=== PATIENT | female | born 1930 | race Caucasian/White ===

== ENCOUNTER 2016-12-16 04:43 | Inpatient (IN) | payer MEDICARE, BC ==
[~2016-12-16] VITALS: Ht 165.1 cm; Wt 114.8 kg
[2016-12-16] VITALS (34 sets, daily range): BP systolic 81–125; BP diastolic 36–79
[2016-12-16] MEDS ORDERED: ALBUTEROL FS 2.5 MG/0.5 ML VIAL.NEB ONE (04:59)
[2016-12-16] MEDS ORDERED: IPRATROPIUM NEB FS 0.5 MG/2.5 ML AMPUL.NEB NEB ONE (05:00)
[2016-12-16] MEDS ORDERED: methylPREDNISolone SOD SUCC 125 MG/2ML VIAL IV ONE (05:00)
[2016-12-16] MEDS ORDERED: IPRATROPIUM NEB FS 0.5 MG/2.5 ML AMPUL.NEB ONE (05:00)
[2016-12-16] MEDS ORDERED: ALBUTEROL FS 2.5 MG/0.5 ML VIAL.NEB NEB ONE (05:00)
[2016-12-16] MEDS ORDERED: methylPREDNISolone SOD SUCC 125 MG/2ML VIAL ONE (05:05)
[2016-12-16 05:24] LABS: BASOPHILS # (AUTO) 0.1 /CMM (0.0-0.2); BASOPHILS % (AUTO) 0.4 % (0.0-2.0); DIFF TOTAL % 100 %; EOSINOPHILS # (AUTO) 0.1 /CMM (0.0-0.7); EOSINOPHILS % (AUTO) 0.3 % (0.0-6.0); HEMATOCRIT 47 % (33-45); HEMOGLOBIN 14.9 g/dL (11.5-14.8); LYMPHOCYTES # (AUTO) 5.1 /CMM (0.8-4.8); MEAN CORPUSCULAR HEMOGLOBIN 27 PG (26.0-33.0); MEAN CORPUSCULAR HGB CONC 32 g/dl (31.0-36.0); MEAN CORPUSCULAR VOLUME 84 fL (82-100); MONOCYTES # (AUTO) 1.6 /CMM (0.1-1.30); MONOCYTES % (AUTO) 8.7 % (2.0-12.0); NEUTROPHILS # (AUTO) 11.4 /CMM (1.8-8.9); NEUTROPHILS % (AUTO) 62.6 % (43.0-81.0); PLATELET COUNT (AUTO) 196 /CMM (150-450); RED BLOOD CELL COUNT(AUTO) 5.59 MIL/uL (4.0-5.2); WHITE BLOOD COUNT (AUTO) 18.2 K/uL (4.3-11.0)
[2016-12-16] MEDS ORDERED: ASPIRIN 325 MG TABLET ONE (05:46)
[2016-12-16 05:48] LABS: ANION GAP 11 (5-14); CALCIUM, SERUM 9.3 mg/dL (8.5-10.1); CARBON DIOXIDE 30 mmol/L (21-32); CHLORIDE 101 mmol/L (98-107); CREATININE 1.7 mg/dL (0.6-1.3); GLUCOSE 215 mg/dL (74-106); POTASSIUM 4.3 mmol/L (3.5-5.1); SODIUM SERUM 137 mmol/L (136-145); UREA NITROGEN, BLOOD 31 mg/dL (7-18)
[2016-12-16 05:48] LABS: ABG BASE EXCESS -7.7 mmol/L; ABG HCO3 23.3 mmol/L; ABG PH 7.121 (7.350-7.450); ABG PO2 189.1 mmHg (75.0-100.0); ABG TOTAL HEMOGLOBIN 15.5 G/dL (12.0-16.0); ALLEN TEST Pass; AaDO2 450.9 mmHg; O2Hb 97.8 % (94.0-97.0)
[2016-12-16 05:49] LABS: LACTIC ACID 2.6 mmol/L (0.4-2.0)
[2016-12-16 05:51] LABS: ALANINE AMINOTRANSFERASE 54 U/L (12-78); ALBUMIN 3.9 g/dL (3.4-5.0); ASPARTATE AMINOTRANSFERASE 47 U/L (15-37); BILIRUBIN,DIRECT 0.1 mg/dL (0.0-0.2); BILIRUBIN,TOTAL 0.4 mg/dL (0.2-1.0); INDIRECT BILIRUBIN 0.3 mg/dL (0.0-1.1); TOTAL PROTEIN, SERUM 8.8 g/dL (6.4-8.2)
[2016-12-16] MEDS ORDERED: FUROSEMIDE 40 MG/4 ML VIAL ONE (05:51)
[2016-12-16] MEDS ORDERED: ACETAMINOPHEN 650 MG/SUPP.RECT RC PRN (06:00)
[2016-12-16] MEDS ORDERED: FUROSEMIDE 40 MG/4 ML VIAL IV ONE (06:00)
[2016-12-16 06:09] LABS: KETONES,URINE NEGATIVE (NEGATIVE); LEUKOCYTE ESTERASE ,URINE NEGATIVE (NEGATIVE)
[2016-12-16] MEDS ORDERED: IV SET PRIMARY PUMP SET 1 EA INFUS.SET MC ONE ×3 (06:16→11:39)
[2016-12-16] MEDS ORDERED: NTG 50 MG/D5W250 ML BOTTL 250 ML IV ONE ×2 (06:16→06:30)
[2016-12-16] MEDS ORDERED: LORAZEPAM INJ 2 MG/ML VIAL ONE (06:18)
[2016-12-16 06:19] LABS: PHOSPHORUS 3.9 mg/dL (2.5-4.9)
[2016-12-16 06:21] LABS: *LACTIC ACID REFLEX FLAG YES
[2016-12-16 06:21] LABS: ADD UA MICROSCOPIC YES
[2016-12-16 06:29] LABS: THYROID STIMULATING HORMONE 3.614 uIU/mL (0.358-3.74)
[2016-12-16 06:30] LABS: ADD URINE CULTURE NO; WBC,URINE 0-2 /HPF (0-3)
[2016-12-16] MEDS ORDERED: LORAZEPAM INJ 2 MG/ML VIAL IV ONE (06:30)
[2016-12-16 06:46] LABS: INR 1.52 (0.87-1.13); PROTHROMBIN TIME 16.5 SECS (9.5-12.7)
[2016-12-16] MEDS ORDERED: DEXTROSE 50%-WATER 50 ML DISP.SYRIN IV PRN (07:00)
[2016-12-16 07:10] LABS: ABG BASE EXCESS -5.8 mmol/L; ABG HCO3 22.6 mmol/L; ABG PH 7.223 (7.350-7.450); ABG TOTAL HEMOGLOBIN 14.6 G/dL (12.0-16.0); ALLEN TEST Pass; O2Hb 98.5 % (94.0-97.0)
[2016-12-16] MEDS ORDERED: NTG 50 MG/D5W250 ML BOTTL 250 ML IV PRN (07:30)
[2016-12-16] MEDS ORDERED: HEPARIN SODIUM, PORCINE 5000 UNITS/1 ML VIAL SQ SCH (09:00)
[2016-12-16] MEDS ORDERED: ENOXAPARIN SODIUM 100 MG/ML DISP.SYRIN SQ SCH ×2 (09:00)
[2016-12-16] MEDS: FUROSEMIDE 40 MG/4 ML VIAL IV SCH ×3 (09:01→16:20)
[2016-12-16] MEDS: BLOOD SUGAR DIAGNOSTIC 1 EACH STRIP VI SCH ×4 (09:01→21:05)
[2016-12-16] MEDS: PANTOPRAZOLE 40 MG VIAL IV SCH (09:01)
[2016-12-16] MEDS ORDERED: LEVOFLOXACIN 750 MG /D5W 150ML 750 MG in PREMIX 1 EA IV SCH (10:30)
[2016-12-16] MEDS ORDERED: ALPR0.255 PO (10:48)
[2016-12-16] MEDS ORDERED: FURO20TA4 PO (10:48)
[2016-12-16] MEDS ORDERED: LEVO125T8 PO (10:48)
[2016-12-16] MEDS ORDERED: OLME40TA3 PO (10:48)
[2016-12-16] MEDS ORDERED: WARF2TAB57 PO (10:48)
[2016-12-16] MEDS ORDERED: METO25TA3 PO (10:48)
[2016-12-16] MEDS ORDERED: PRED5TAB PO (10:48)
[2016-12-16] MEDS ORDERED: ESOM40CA52 PO (10:48)
[2016-12-16] MEDS ORDERED: ALLO100T PO (10:48)
[2016-12-16] MEDS ORDERED: IV NS 0.9% 250 ML IV ONE (11:39)
[2016-12-16] MEDS ORDERED: SECONDARY IV SET 1 EA INFUS.SET MC ONE (11:39)
[2016-12-16] MEDS: LEVOFLOXACIN 750 MG /D5W 150ML 750 MG in PREMIX 1 EA IV SCH (12:10)
[2016-12-16 12:14] LABS: ABG BASE EXCESS -2.3 mmol/L; ABG HCO3 23.1 mmol/L; ABG PCO2 41.8 mmHg (35.0-45.0); ABG PO2 175.3 mmHg (75.0-100.0); ABG TOTAL HEMOGLOBIN 13.8 G/dL (12.0-16.0); ALLEN TEST Pass; AaDO2 134.2 mmHg; O2Hb 97.4 % (94.0-97.0)
[2016-12-16] MEDS ORDERED: IPRATROPIUM NEB FS 0.5 MG/2.5 ML AMPUL.NEB NEB PRN (13:00)
[2016-12-16] MEDS ORDERED: ALBUTEROL FS 2.5 MG/3 ML VIAL.NEB NEB PRN (13:00)
[2016-12-16] MEDS: ALBUTEROL FS 2.5 MG/3 ML VIAL.NEB NEB SCH ×3 (15:30→22:54)
[2016-12-16] MEDS: IPRATROPIUM NEB FS 0.5 MG/2.5 ML AMPUL.NEB NEB SCH ×3 (15:30→22:54)
[2016-12-16] MEDS: methylPREDNISolone SOD SUCC 125 MG/2ML VIAL IV SCH (16:19)
[2016-12-16 17:39] LABS: ABG BASE EXCESS 1.5 mmol/L; ABG HCO3 25.9 mmol/L; ABG PH 7.429 (7.350-7.450); ABG PO2 103.7 mmHg (75.0-100.0); ABG TOTAL HEMOGLOBIN 13.8 G/dL (12.0-16.0); ALLEN TEST Pass; AaDO2 48.7 mmHg; O2Hb 95.9 % (94.0-97.0)
[2016-12-16] MEDS: WARFARIN SODIUM 2 MG TABLET PO SCH (18:01)
[2016-12-16] MEDS: INSULIN REGULAR, HUMAN 100 UNIT/ML 3 ML VIAL SQ PRN (21:11)
[2016-12-17] VITALS (32 sets, daily range): BP systolic 89–167; BP diastolic 36–90
[2016-12-17] MEDS ORDERED: IV NS 0.9% 250 ML IV ONE (00:50)
[2016-12-17] MEDS: IPRATROPIUM NEB FS 0.5 MG/2.5 ML AMPUL.NEB NEB SCH ×6 (03:05→23:08)
[2016-12-17] MEDS: ALBUTEROL FS 2.5 MG/3 ML VIAL.NEB NEB SCH ×6 (03:05→23:08)
[2016-12-17 05:24] LABS: BASOPHILS % (AUTO) 0.2 % (0.0-2.0); DIFF TOTAL % 100 %; EOSINOPHILS % (AUTO) 0.2 % (0.0-6.0); HEMATOCRIT 39 % (33-45); HEMOGLOBIN 12.4 g/dL (11.5-14.8); LYMPHOCYTES # (AUTO) 1.6 /CMM (0.8-4.8); LYMPHOCYTES % (AUTO) 16.1 % (20.0-44.0); MEAN CORPUSCULAR HEMOGLOBIN 27 PG (26.0-33.0); MEAN CORPUSCULAR HGB CONC 32 g/dl (31.0-36.0); MEAN CORPUSCULAR VOLUME 82 fL (82-100); MONOCYTES % (AUTO) 9.9 % (2.0-12.0); NEUTROPHILS # (AUTO) 7.2 /CMM (1.8-8.9); NEUTROPHILS % (AUTO) 73.6 % (43.0-81.0); PLATELET COUNT (AUTO) 155 /CMM (150-450); RED BLOOD CELL COUNT(AUTO) 4.69 MIL/uL (4.0-5.2); WHITE BLOOD COUNT (AUTO) 9.8 K/uL (4.3-11.0)
[2016-12-17 05:35] LABS: ALBUMIN 2.9 g/dL (3.4-5.0); BILIRUBIN,TOTAL 0.5 mg/dL (0.2-1.0); CALCIUM, SERUM 8.8 mg/dL (8.5-10.1); CREATININE 1.5 mg/dL (0.6-1.3); PHOSPHORUS 3.5 mg/dL (2.5-4.9); POTASSIUM 3.8 mmol/L (3.5-5.1); TOTAL PROTEIN, SERUM 6.7 g/dL (6.4-8.2)
[2016-12-17 05:40] LABS: TROPONIN I 1.455 ng/mL (0.00-0.056)
[2016-12-17 05:44] LABS: INR 2.02 (0.87-1.13)
[2016-12-17] MEDS: BLOOD SUGAR DIAGNOSTIC 1 EACH STRIP VI SCH ×4 (08:03→21:32)
[2016-12-17] MEDS ORDERED: METOPROLOL SUCCINATE 25 MG TAB.SR.24H PO SCH (09:00)
[2016-12-17] MEDS ORDERED: ASPIRIN 325 MG TABLET PO SCH (09:00)
[2016-12-17] MEDS: LEVOTHYROXINE SODIUM 125 MCG TABLET PO SCH (09:11)
[2016-12-17] MEDS: DILTIAZEM HCL CD 240 MG PO SCH (09:11)
[2016-12-17] MEDS: PANTOPRAZOLE 40 MG VIAL IV SCH (09:12)
[2016-12-17] MEDS: methylPREDNISolone SOD SUCC 125 MG/2ML VIAL IV SCH ×2 (09:12→17:04)
[2016-12-17] MEDS ORDERED: Magnesium 1GM/D5W 100ML PREMIX 100 ML IV SCH (10:27)
[2016-12-17] MEDS ORDERED: SECONDARY IV SET 1 EA INFUS.SET MC ONE (10:35)
[2016-12-17] MEDS: INSULIN REGULAR, HUMAN 100 UNIT/ML 3 ML VIAL SQ PRN ×2 (12:04→17:25)
[2016-12-17] MEDS: FLUTICASONE PROPIONATE 16 GM BOTTLE NS SCH (12:31)
[2016-12-17] MEDS: WARFARIN SODIUM 2 MG TABLET PO SCH (17:05)
[2016-12-17] MEDS: *INSULIN REGULAR(HUMULIN R)HUM 100 UNIT/ML VIAL SQ PRN (22:07)
[2016-12-18] VITALS (22 sets, daily range): BP systolic 84–162; BP diastolic 25–113
[2016-12-18] MEDS: LORAZEPAM INJ 2 MG/ML VIAL IV PRN (01:45)
[2016-12-18] MEDS: IPRATROPIUM NEB FS 0.5 MG/2.5 ML AMPUL.NEB NEB SCH ×5 (03:15→20:13)
[2016-12-18] MEDS: ALBUTEROL FS 2.5 MG/3 ML VIAL.NEB NEB SCH ×5 (03:17→20:13)
[2016-12-18] MEDS ORDERED: IV NS 0.9% 250 ML IV ONE (04:05)
[2016-12-18 05:03] LABS: DIFF TOTAL % 100 %; HEMATOCRIT 42 % (33-45); HEMOGLOBIN 13.1 g/dL (11.5-14.8); LYMPHOCYTES # (AUTO) 0.9 /CMM (0.8-4.8); LYMPHOCYTES % (AUTO) 10.3 % (20.0-44.0); MEAN CORPUSCULAR HEMOGLOBIN 26 PG (26.0-33.0); MEAN CORPUSCULAR HGB CONC 31 g/dl (31.0-36.0); MEAN CORPUSCULAR VOLUME 83 fL (82-100); MONOCYTES # (AUTO) 0.3 /CMM (0.1-1.30); MONOCYTES % (AUTO) 3.7 % (2.0-12.0); NEUTROPHILS # (AUTO) 7.5 /CMM (1.8-8.9); PLATELET COUNT (AUTO) 169 /CMM (150-450); RED BLOOD CELL COUNT(AUTO) 5.12 MIL/uL (4.0-5.2); WHITE BLOOD COUNT (AUTO) 8.8 K/uL (4.3-11.0)
[2016-12-18 05:15] LABS: ALBUMIN 2.9 g/dL (3.4-5.0); BILIRUBIN,TOTAL 0.5 mg/dL (0.2-1.0); CALCIUM, SERUM 9.3 mg/dL (8.5-10.1); CREATININE 1.4 mg/dL (0.6-1.3); PHOSPHORUS 2.7 mg/dL (2.5-4.9); POTASSIUM 3.7 mmol/L (3.5-5.1); TOTAL PROTEIN, SERUM 7.3 g/dL (6.4-8.2)
[2016-12-18 05:23] LABS: TROPONIN I 0.65 ng/mL (0.00-0.056)
[2016-12-18] MEDS: BLOOD SUGAR DIAGNOSTIC 1 EACH STRIP VI SCH ×4 (07:30→21:53)
[2016-12-18] MEDS: INSULIN REGULAR, HUMAN 100 UNIT/ML 3 ML VIAL SQ PRN ×3 (08:43→17:25)
[2016-12-18] MEDS: methylPREDNISolone SOD SUCC 125 MG/2ML VIAL IV SCH (08:43)
[2016-12-18] MEDS: LEVOTHYROXINE SODIUM 125 MCG TABLET PO SCH (08:43)
[2016-12-18] MEDS: FUROSEMIDE 40 MG TABLET PO SCH (08:44)
[2016-12-18] MEDS: PANTOPRAZOLE 40 MG TABLET.DR PO SCH (08:44)
[2016-12-18] MEDS: POTASSIUM CHLORIDE 20 MEQ TAB.PRT.SR PO SCH (08:44)
[2016-12-18] MEDS: ATORVASTATIN 10 MG TABLET PO SCH (08:44)
[2016-12-18] MEDS: DILTIAZEM HCL CD 240 MG PO SCH (08:47)
[2016-12-18] MEDS: FLUTICASONE PROPIONATE 16 GM BOTTLE NS SCH (08:47)
[2016-12-18] MEDS: LEVOFLOXACIN 750 MG /D5W 150ML 750 MG in PREMIX 1 EA IV SCH (12:01)
[2016-12-18] MEDS: GUAIFENESIN LA 600 MG TABLET.SA PO SCH ×2 (12:42→20:10)
[2016-12-18] MEDS: methylPREDNISolone SOD SUCC 40 MG/ML VIAL IV SCH (16:37)
[2016-12-18] MEDS: WARFARIN SODIUM 2 MG TABLET PO SCH (16:38)
[2016-12-18] MEDS: *INSULIN REGULAR(HUMULIN R)HUM 100 UNIT/ML VIAL SQ PRN (21:55)
[2016-12-19] VITALS: BP 119/60
[2016-12-19] MEDS: LORAZEPAM INJ 2 MG/ML VIAL IV PRN (01:12)
[2016-12-19 04:00] VITALS: BP 121/61
[2016-12-19 06:52] LABS: BASOPHILS # (AUTO) 0.1 /CMM (0.0-0.2); BASOPHILS % (AUTO) 0.6 % (0.0-2.0); DIFF TOTAL % 100 %; HEMATOCRIT 41 % (33-45); HEMOGLOBIN 13.1 g/dL (11.5-14.8); LYMPHOCYTES # (AUTO) 0.9 /CMM (0.8-4.8); LYMPHOCYTES % (AUTO) 8.1 % (20.0-44.0); MEAN CORPUSCULAR HEMOGLOBIN 26 PG (26.0-33.0); MEAN CORPUSCULAR HGB CONC 32 g/dl (31.0-36.0); MEAN CORPUSCULAR VOLUME 83 fL (82-100); MONOCYTES # (AUTO) 0.3 /CMM (0.1-1.30); MONOCYTES % (AUTO) 2.9 % (2.0-12.0); NEUTROPHILS # (AUTO) 9.6 /CMM (1.8-8.9); NEUTROPHILS % (AUTO) 88.4 % (43.0-81.0); PLATELET COUNT (AUTO) 187 /CMM (150-450); WHITE BLOOD COUNT (AUTO) 10.9 K/uL (4.3-11.0)
[2016-12-19 06:58] LABS: INR 2.3 (0.87-1.13); PROTHROMBIN TIME 25.1 SECS (9.5-12.7)
[2016-12-19] MEDS: BLOOD SUGAR DIAGNOSTIC 1 EACH STRIP VI SCH ×4 (07:15→21:27)
[2016-12-19] MEDS: ALBUTEROL FS 2.5 MG/3 ML VIAL.NEB NEB SCH ×4 (07:23→20:02)
[2016-12-19] MEDS: IPRATROPIUM NEB FS 0.5 MG/2.5 ML AMPUL.NEB NEB SCH ×4 (07:23→20:02)
[2016-12-19 07:27] LABS: CALCIUM, SERUM 9.5 mg/dL (8.5-10.1); CREATININE 1.4 mg/dL (0.6-1.3)
[2016-12-19 08:00] VITALS: BP 123/60
[2016-12-19] MEDS: ATORVASTATIN 10 MG TABLET PO SCH (08:25)
[2016-12-19] MEDS: POTASSIUM CHLORIDE 20 MEQ TAB.PRT.SR PO SCH (08:25)
[2016-12-19] MEDS: PANTOPRAZOLE 40 MG TABLET.DR PO SCH (08:25)
[2016-12-19] MEDS: FUROSEMIDE 40 MG TABLET PO SCH (08:25)
[2016-12-19] MEDS: DILTIAZEM HCL CD 240 MG PO SCH (08:26)
[2016-12-19] MEDS: methylPREDNISolone SOD SUCC 40 MG/ML VIAL IV SCH (08:26)
[2016-12-19] MEDS: GUAIFENESIN LA 600 MG TABLET.SA PO SCH ×2 (08:26→21:27)
[2016-12-19] MEDS: FLUTICASONE PROPIONATE 16 GM BOTTLE NS SCH (08:29)
[2016-12-19] MEDS: LEVOTHYROXINE SODIUM 125 MCG TABLET PO SCH (08:30)
[2016-12-19] MEDS ORDERED: methylPREDNISolone SOD SUCC 40 MG/ML VIAL IV SCH (09:00)
[2016-12-19] MEDS ORDERED: SENNOSIDES/DOCUSATE SODIUM 1 TAB TABLET PO PRN (11:00)
[2016-12-19] MEDS: INSULIN REGULAR, HUMAN 100 UNIT/ML 3 ML VIAL SQ PRN ×2 (11:48→16:43)
[2016-12-19] MEDS: POLYETHYLENE GLYCOL 3350 17 GM POWD.PACK PO SCH (11:48)
[2016-12-19 12:00] VITALS: BP_SYST 114; BP_SYST 123; BP_SYST 128; BP_SYST 135; BP_DIAS 51; BP_DIAS 58; BP_DIAS 81; BP_DIAS 83
[2016-12-19 16:00] VITALS: BP 119/59
[2016-12-19] MEDS: WARFARIN SODIUM 2 MG TABLET PO SCH (16:47)
[2016-12-19 20:00] VITALS: BP 110/51
[2016-12-19] MEDS: *INSULIN REGULAR(HUMULIN R)HUM 100 UNIT/ML VIAL SQ PRN (21:28)
[2016-12-20 04:00] VITALS: BP 128/70
[2016-12-20] MEDS: BLOOD SUGAR DIAGNOSTIC 1 EACH STRIP VI SCH ×4 (06:49→21:15)
[2016-12-20] MEDS: INSULIN REGULAR, HUMAN 100 UNIT/ML 3 ML VIAL SQ PRN ×2 (06:49→12:06)
[2016-12-20 06:59] LABS: CALCIUM, SERUM 9.2 mg/dL (8.5-10.1); CREATININE 1.3 mg/dL (0.6-1.3); PHOSPHORUS 3.8 mg/dL (2.5-4.9); POTASSIUM 4.2 mmol/L (3.5-5.1)
[2016-12-20 07:24] LABS: INR 2.21 (0.87-1.13); PROTHROMBIN TIME 24.1 SECS (9.5-12.7)
[2016-12-20] MEDS: IPRATROPIUM NEB FS 0.5 MG/2.5 ML AMPUL.NEB NEB SCH ×4 (07:28→19:51)
[2016-12-20] MEDS: ALBUTEROL FS 2.5 MG/3 ML VIAL.NEB NEB SCH ×4 (07:28→19:51)
[2016-12-20 08:00] VITALS: BP 132/63
[2016-12-20 08:12] LABS: BASOPHILS % (AUTO) 0.2 % (0.0-2.0); DIFF TOTAL % 100 %; HEMATOCRIT 42 % (33-45); HEMOGLOBIN 13.2 g/dL (11.5-14.8); LYMPHOCYTES % (AUTO) 8.8 % (20.0-44.0); MEAN CORPUSCULAR HEMOGLOBIN 26 PG (26.0-33.0); MEAN CORPUSCULAR HGB CONC 31 g/dl (31.0-36.0); MEAN CORPUSCULAR VOLUME 83 fL (82-100); MONOCYTES # (AUTO) 0.5 /CMM (0.1-1.30); MONOCYTES % (AUTO) 4.9 % (2.0-12.0); NEUTROPHILS # (AUTO) 9.5 /CMM (1.8-8.9); NEUTROPHILS % (AUTO) 86.1 % (43.0-81.0); PLATELET COUNT (AUTO) 203 /CMM (150-450); RED BLOOD CELL COUNT(AUTO) 5.12 MIL/uL (4.0-5.2); WHITE BLOOD COUNT (AUTO) 11.1 K/uL (4.3-11.0)
[2016-12-20] MEDS: LEVOTHYROXINE SODIUM 125 MCG TABLET PO SCH (08:19)
[2016-12-20] MEDS: ATORVASTATIN 10 MG TABLET PO SCH (09:49)
[2016-12-20] MEDS: PANTOPRAZOLE 40 MG TABLET.DR PO SCH (09:49)
[2016-12-20] MEDS: methylPREDNISolone SOD SUCC 40 MG/ML VIAL IV SCH (09:49)
[2016-12-20] MEDS: GUAIFENESIN LA 600 MG TABLET.SA PO SCH ×2 (09:49→21:14)
[2016-12-20] MEDS: POTASSIUM CHLORIDE 20 MEQ TAB.PRT.SR PO SCH (09:49)
[2016-12-20] MEDS: FUROSEMIDE 40 MG TABLET PO SCH (09:50)
[2016-12-20] MEDS: DILTIAZEM HCL CD 240 MG PO SCH (09:50)
[2016-12-20] MEDS: FLUTICASONE PROPIONATE 16 GM BOTTLE NS SCH (09:51)
[2016-12-20] MEDS: LEVOFLOXACIN 750 MG /D5W 150ML 750 MG in PREMIX 1 EA IV SCH (11:02)
[2016-12-20] MEDS ORDERED: BISACODYL SUPP (10 MG) 10 MG/SUPP.RECT SUPP.RECT RC PRN (14:00)
[2016-12-20] MEDS ORDERED: PRED20TA PO (14:40)
[2016-12-20] MEDS ORDERED: FURO40TA5 PO (14:40)
[2016-12-20 16:00] VITALS: BP 126/43
[2016-12-20] MEDS ORDERED: NA PHOS,M-B/NA PHOS,DI-BA 1 EA ENEMA RC PRN (16:00)
[2016-12-20] MEDS: WARFARIN SODIUM 2 MG TABLET PO SCH (16:40)
[2016-12-20 20:00] VITALS: BP 104/53
[2016-12-20] MEDS: POLYETHYLENE GLYCOL 3350 17 GM POWD.PACK PO SCH (21:14)
[2016-12-20] MEDS: *INSULIN REGULAR(HUMULIN R)HUM 100 UNIT/ML VIAL SQ PRN (21:18)
[2016-12-20] MEDS: LORAZEPAM INJ 2 MG/ML VIAL IV PRN (21:43)
[2016-12-21 04:00] VITALS: BP 126/66
[2016-12-21] MEDS: BLOOD SUGAR DIAGNOSTIC 1 EACH STRIP VI SCH ×2 (06:50→11:42)
[2016-12-21] MEDS: INSULIN REGULAR, HUMAN 100 UNIT/ML 3 ML VIAL SQ PRN (06:51)
[2016-12-21] MEDS: IPRATROPIUM NEB FS 0.5 MG/2.5 ML AMPUL.NEB NEB SCH ×2 (07:21→11:33)
[2016-12-21] MEDS: ALBUTEROL FS 2.5 MG/3 ML VIAL.NEB NEB SCH ×2 (07:22→11:33)
[2016-12-21 08:00] VITALS: BP 131/55
[2016-12-21] MEDS: FUROSEMIDE 40 MG TABLET PO SCH (08:34)
[2016-12-21] MEDS: LEVOTHYROXINE SODIUM 125 MCG TABLET PO SCH (08:34)
[2016-12-21] MEDS: POTASSIUM CHLORIDE 20 MEQ TAB.PRT.SR PO SCH (08:34)
[2016-12-21] MEDS: PANTOPRAZOLE 40 MG TABLET.DR PO SCH (08:34)
[2016-12-21] MEDS: ATORVASTATIN 10 MG TABLET PO SCH (08:34)
[2016-12-21] MEDS: GUAIFENESIN LA 600 MG TABLET.SA PO SCH (08:34)
[2016-12-21 08:35] VITALS: BP 131/55
[2016-12-21] MEDS: methylPREDNISolone SOD SUCC 40 MG/ML VIAL IV SCH (08:35)
[2016-12-21] MEDS: DILTIAZEM HCL CD 240 MG PO SCH (08:35)
[2016-12-21] MEDS: FLUTICASONE PROPIONATE 16 GM BOTTLE NS SCH (09:51)
== END 2016-12-21 15:01 | DRG 280 ==
LOC: ER 04:44 → ICU 06:13 → TELE-TD 12-18 17:45 → TELE1 12-19 10:43 → MEDSG1 12-19 11:16
PROVIDERS: ADMIT Nurse Practitioner Acute Care; ATTEND Nurse Practitioner Acute Care
PROC: 5A09457 Assistance with Respiratory Ventilation, 24-96 Consecutive Hours, Continuous Positive Airway Pressure (ICD-10-PCS; principal; 2016-12-16)
DX: I50.23 Acute on chronic systolic (congestive) heart failure (principal); I21.4 Non-ST elevation (NSTEMI) myocardial infarction; N17.0 Acute kidney failure with tubular necrosis; J96.02 Acute respiratory failure with hypercapnia; J96.01 Acute respiratory failure with hypoxia; E66.2 Morbid (severe) obesity with alveolar hypoventilation; D68.59 Other primary thrombophilia; Z68.41 Body mass index [BMI] 40.0-44.9, adult; E87.2 Acidosis; J44.1 Chronic obstructive pulmonary disease with (acute) exacerbation; J98.11 Atelectasis; J45.909 Unspecified asthma, uncomplicated; E11.51 Type 2 diabetes mellitus with diabetic peripheral angiopathy without gangrene; I48.2 Chronic atrial fibrillation; I12.9 Hypertensive chronic kidney disease with stage 1 through stage 4 chronic kidney disease, or unspecified chronic kidney disease; E78.5 Hyperlipidemia, unspecified; I25.10 Atherosclerotic heart disease of native coronary artery without angina pectoris; Z87.891 Personal history of nicotine dependence; D64.9 Anemia, unspecified; E11.22 Type 2 diabetes mellitus with diabetic chronic kidney disease; I25.2 Old myocardial infarction; I34.0 Nonrheumatic mitral (valve) insufficiency; I44.7 Left bundle-branch block, unspecified; J06.9 Acute upper respiratory infection, unspecified; K59.00 Constipation, unspecified; M10.9 Gout, unspecified; M79.7 Fibromyalgia; N18.9 Chronic kidney disease, unspecified; Z79.01 Long term (current) use of anticoagulants
CPT/HCPCS: 36415; 36600; 71010-TC; 80048-TC; 80053-TC; 80061-TC; 80076-TC; 81000-TC; 82962-TC; 83605-TC; 83735-TC; 83880; 84100-TC; 84443-TC; 84484-TC; 85025-TC; 85610-TC; 85730-TC; 87040-TC; 87081-TC; 93307-TC; 94799-TC; 97001-TC; 97003-TC; 97116-TC; 97530-TC; 99082-TC; A4216; A4606; C9113; J1650; J1815; J1940; J1956; J2060; J2920; J2930; J3475; J3490; J7050; Z7610

== ENCOUNTER 2017-12-19 19:41 | Emergency (ER) | payer BC, MEDICARE ==
[~2017-12-19] VITALS: Ht 154.9 cm; Wt 72.6 kg
[~2017-12-19 19:41] MED LIST: ALLO100T PO; ALPR0.255 PO; ESOM40CA52 PO; FURO40TA5 PO; LEVO125T8 PO; METO25TA3 PO; OLME40TA12 PO; PRED20TA PO; PRED5TAB PO; WARF2TAB57 PO
--- NOTE | 2017-12-19 21:00 | NUR ---
PT BIB FAMILY FROM HOME, PT STATES FEELING VERY ANXIOUS S/P TAKING PREDNISONE AT AN URGENT CARE EARLIER, PT DENIES CP OR SOB. PT AOX 3 RR EVEN AND UNLABORED. NO SOB NOTED. NAD NOTED. NO NVD AT THIS TIME. PT GOWNED AND PLACED ON MONITOR WAITING FOR MD MARC.
[2017-12-19] MEDS ORDERED: DICYCLOMINE HCL 10 MG CAPSULE PO ONE ×2 (21:55→22:00)
[2017-12-19] MEDS ORDERED: MAG HYDROX/AL HYDROX/SIMETH 30 ML UDC ONE (21:55)
[2017-12-19] MEDS ORDERED: LIDOCAINE VISCOUS 2% UD 15 ML UDC ONE (21:55)
[2017-12-19] MEDS ORDERED: LIDOCAINE VISCOUS 2% UD 15 ML UDC MM ONE (22:00)
[2017-12-19] MEDS ORDERED: MAG HYDROX/AL HYDROX/SIMETH 30 ML UDC PO ONE (22:00)
[2017-12-19 22:03] VITALS: BP 159/68
== END 2017-12-19 22:04 | disposition home or self-care (01) ==
LOC: ER 19:43
DX: F41.9 Anxiety disorder, unspecified (principal); T38.0X5A Adverse effect of glucocorticoids and synthetic analogues, initial encounter; I11.0 Hypertensive heart disease with heart failure; I50.9 Heart failure, unspecified; I48.91 Unspecified atrial fibrillation; Z79.01 Long term (current) use of anticoagulants; Z88.0 Allergy status to penicillin; Z88.2 Allergy status to sulfonamides; Z90.710 Acquired absence of both cervix and uterus; Z88.8 Allergy status to other drugs, medicaments and biological substances; Y92.89 Other specified places as the place of occurrence of the external cause
CPT/HCPCS: 93005; 99284; A4606; Z7610